=== PATIENT | female | born 1980 | race Caucasian/White ===

== ENCOUNTER 2019-03-12 09:36 | Emergency (ER) | payer BC ==
[~2019-03-12] VITALS: Ht 165.1 cm; Wt 81.6 kg
--- NOTE | 2019-03-12 09:56 | PHYS DOC ---
Adult General Chief Complaint Chief Complaint: BACK PAIN OR INJURY HPI HPI Patient is a 38 year old F who presents after a slip and fall on ice this morning. She states that she fell backwards landing on her bottom and then falling backwards hitting her mid back. She describes dull constant pain in the mid back that radiates around to the front. Her pain is worse with movement and improved with relative rest. She denies numbness or tingling. She feels that her pain is mildly improved. She does have a history of low back pain Review of Systems Review of Systems Constitutional: Denies fever or chills [] Eyes: Denies change in visual acuity, redness, or eye pain [] HENT: Denies nasal congestion or sore throat [] Respiratory: Denies cough or shortness of breath [] Cardiovascular: No additional information not addressed in HPI [] GI: Denies abdominal pain, nausea, vomiting, bloody stools or diarrhea [] : Denies dysuria or hematuria [] Musculoskeletal: Negative except history of present illness Integument: Denies rash or skin lesions [] Neurologic: Denies headache, focal weakness or sensory changes [] Endocrine: Denies polyuria or polydipsia [] All other systems were reviewed and found to be within normal limits, except as documented in this note. Family History Family History She states that her father had "thick blood". She states that she also has "thick blood" Current Medications Current Medications Current medications were reviewed Allergies Allergies Allergies listed Physical Exam Physical Exam Constitutional: Well developed, well nourished, no acute distress, non-toxic appearance. [] HENT: Normocephalic, atraumatic, Eyes: PERRLA, EOMI, conjunctiva normal, no discharge. [] Neck: Normal range of motion, no tenderness, supple, no stridor. [] Cardiovascular:Heart rate regular rhythm, Lungs & Thorax: Bilateral breath sounds clear to auscultation [] Abdomen: Bowel sounds normal, soft, no tenderness, no masses, no pulsatile masses. [] Skin: Warm, dry, no erythema, no rash. [] Back: Paraspinal muscle spasm noted in the thoracic spine. Left-sided rib pain noted. Extremities: No tenderness, no cyanosis, no clubbing, ROM intact, no edema. [] Neurologic: Alert and oriented X 3, normal motor function, normal sensory function, no focal deficits noted. [] Psychologic: Affect normal, judgement normal, mood normal. [] Current Patient Data Vital Signs Vital Signs Date Time Temp Pulse Resp B/P (MAP) Pulse Ox O2 Delivery O2 Flow Rate FiO2 03/12/19 09:55 98.0 80 20 100 Room Air EKG EKG [] Radiology/Procedures Radiology/Procedures [] Impressions: Examination: RIBS RIGHT AND PA CHEST, THORACIC SPINE 3V History: Fall, back pain Comparison/Correlation: None Findings: PA view of the chest was obtained. 7 additional images were obtained and these include 3 views of the thoracic spine and 4 images of the right ribs. Levo convexity of the mid to low thoracic spine is present. Alignment is normal. No fracture or bone destruction. Minimal spurring of the vertebral body endplates of the lower thoracic spine suggested. No infiltrate. No pneumothorax. No pleural effusion. Right ribs are intact. Impression: No active disease. Scoliosis. Right ribs are intact. Course & Med Decision Making Course & Med Decision Making Pertinent Labs and Imaging studies reviewed. (See chart for details) [] Dragon Disclaimer Dragon Disclaimer This electronic medical record was generated, in whole or in part, using a voice recognition dictation system. Departure Departure: Impression: Primary Impression: Back strain Disposition: 01 HOME, SELF-CARE Condition: STABLE Referrals: ROLANDO WOLFE MD (PCP) Patient Instructions: Back Exercises, Back Injury Prevention, Back Pain, Adult Additional Instructions: Kesha was seen in the emergency department after a fall. No emergency medical condition was on history physical exam. She did have normal imaging of her spine and ribs. Her symptoms are most consistent with bruising and muscle strain. She was advised to continue range of motion activities. She was advised to use ibuprofen and Tylenol as needed. She was also given a prescription for muscle relaxer to use as needed. She was advised follow-up with her primary care doctor as needed for further management. Scripts Cyclobenzaprine Hcl (CYCLOBENZAPRINE HCL) 10 Mg Tablet 1 TAB PO TID PRN for PAIN for 3 Days, #9 TAB Prov: HANNAH SANDOVAL MD 03/12/19 Problem Qualifiers Primary Impression: Back strain Encounter type: initial encounter Qualified Codes: S39.012A - Strain of muscle, fascia and tendon of lower back, initial encounter HANNAH SANDOVAL MD Mar 12, 2019 09:56
[2019-03-12 10:55] VITALS: BP 132/79
[2019-03-12] MEDS ORDERED: CYCL-331 PO (11:11)
--- NOTE | 2019-03-12 11:12 | RAD ---
Examination: RIBS RIGHT AND PA CHEST, THORACIC SPINE 3V History: Fall, back pain Comparison/Correlation: None Findings: PA view of the chest was obtained. 7 additional images were obtained and these include 3 views of the thoracic spine and 4 images of the right ribs. Levo convexity of the mid to low thoracic spine is present. Alignment is normal. No fracture or bone destruction. Minimal spurring of the vertebral body endplates of the lower thoracic spine suggested. No infiltrate. No pneumothorax. No pleural effusion. Right ribs are intact. Impression: No active disease. Scoliosis. Right ribs are intact. Electronically signed by: Low Harding MD (03/12/2019 11:09 AM) [facility]
== END 2019-03-12 11:23 | disposition home or self-care (01) ==
LOC: ER 09:36
DX: S39.012A Strain of muscle, fascia and tendon of lower back, initial encounter (principal); W18.39XA Other fall on same level, initial encounter; Y93.89 Activity, other specified; Y92.89 Other specified places as the place of occurrence of the external cause; Y99.8 Other external cause status
CPT/HCPCS: 71101; 72072; 99284

== ENCOUNTER 2019-04-18 01:04 | Emergency (ER) | payer BC ==
[~2019-04-18] VITALS: Ht 165.1 cm; Wt 70.0 kg
[~2019-04-18 01:04] MED LIST: CYCL-331 PO
[2019-04-18] MEDS ORDERED: LEVE500T56 PO (01:19)
--- NOTE | 2019-04-18 01:19 | PHYS DOC ---
Past History Past Medical History: Anxiety Past Surgical History: Tonsillectomy, Other Additional Past Surgical Histo: miniscus repair Alcohol Use: Rarely Drug Use: None Adult General HPI HPI Patient is a 38-year-old female who presents to the emergency department for evaluation. Her states he had just gotten into bed, when he was awakened by the patient's movements, he turned on the light and found that the patient was having a generalized tonic-clonic seizure. The seizure lasted about 10-15 minutes per the report, and EMS arrived and found the patient postictal. The patient bit her tongue but did not lose urinary continence. She is coherent and at her baseline at this time, and denies any complaints of pain. She has no prior seizure history. She was started on Lexapro and vitamin D about a month ago, and is chronically on Singulair and minocycline for acne. She has no other complaints at this time. She denies any significant alcohol or drug use. Review of Systems Review of Systems Constitutional: Denies fever or chills [] Eyes: Denies change in visual acuity, redness, or eye pain [] HENT: Denies nasal congestion or sore throat [] Respiratory: Denies cough or shortness of breath [] Cardiovascular:The patient denies any shortness of breath, chest pain, palpitations, or orthopnea[] GI: Denies abdominal pain, nausea, vomiting, bloody stools or diarrhea [] : Denies dysuria or hematuria LMP about 2 weeks ago.[] Musculoskeletal: Denies back pain or joint pain [] Integument: Denies rash or skin lesions [] Neurologic: Denies headache, focal weakness or sensory changes [] Endocrine: Denies polyuria or polydipsia [] All other systems were reviewed and found to be within normal limits, except as documented in this note. Allergies Allergies Allergies Coded Allergies Type Severity Reaction Last Updated Verified Penicillins Allergy Unknown 03/12/19 Yes Sulfa (Sulfonamide Antibiotics) Allergy Unknown 03/12/19 Yes bupropion Allergy Unknown 03/12/19 Yes latex Allergy Unknown 03/12/19 Yes Physical Exam Physical Exam PHYSICAL EXAM: CONSTITUTIONAL: Well developed, well nourished HEAD: normocephalic, atraumatic EENT: PERRL, EOMI. Conjunctivae normal color, sclerae non-icteric; moist mucous membranes. There is superficial abrasions to the right side of the tongue. NECK: Supple, non-tender; no meningismus. LUNGS: Lungs CTA, breathing even and unlabored. Normal air movement. HEART: Regular rate and rhythm, no murmur CHEST: No deformity; non-tender ABDOMEN: The abdomen is soft, and non-tender, no masses or bruits. EXTREM: Normal ROM; no deformity, no calf tenderness. Normal pulses palpable in all extremities. There is no pedal edema. SKIN: No rash; no diaphoresis NEURO: Alert; normal speech and cognition; CN's grossly intact; strength grossly intact without focal deficit. BACK: No CVA TTP. Current Patient Data Lab Results Laboratory Tests Test 04/18/19 01:41 04/18/19 01:42 04/18/19 01:53 White Blood Count 6.9 x10^3/uL Red Blood Count 4.38 x10^6/uL Hemoglobin 13.3 g/dL Hematocrit 39.9 % Mean Corpuscular Volume 91 fL Mean Corpuscular Hemoglobin 30 pg Mean Corpuscular Hemoglobin Concent 33 g/dL Red Cell Distribution Width 13.2 % Platelet Count 200 x10^3/uL Neutrophils (%) (Auto) 51 % Lymphocytes (%) (Auto) 36 % Monocytes (%) (Auto) 8 % Eosinophils (%) (Auto) 5 % Basophils (%) (Auto) 1 % Neutrophils # (Auto) 3.5 x10^3uL Lymphocytes # (Auto) 2.5 x10^3/uL Monocytes # (Auto) 0.5 x10^3/uL Eosinophils # (Auto) 0.3 x10^3/uL Basophils # (Auto) 0.0 x10^3/uL Sodium Level 142 mmol/L Potassium Level 4.0 mmol/L Chloride Level 105 mmol/L Carbon Dioxide Level 27 mmol/L Anion Gap 10 Blood Urea Nitrogen 16 mg/dL Creatinine 0.8 mg/dL Estimated GFR (Cockcroft-Gault) 81.2 BUN/Creatinine Ratio 20 Glucose Level 92 mg/dL Calcium Level 8.9 mg/dL Magnesium Level 2.1 mg/dL Total Bilirubin 0.2 mg/dL Aspartate Amino Transf (AST/SGOT) 23 U/L Alanine Aminotransferase (ALT/SGPT) 33 U/L Alkaline Phosphatase 61 U/L Total Protein 6.3 g/dL Albumin 3.5 g/dL Albumin/Globulin Ratio 1.3 Urine Collection Type Unknown Urine Color Yellow Urine Clarity Clear Urine pH 6.0 Urine Specific Dille 1.020 Urine Protein Neg Urine Glucose (UA) Neg mg/dL Urine Ketones (Stick) Neg mg/dL Urine Blood Trace Urine Nitrite Neg Urine Bilirubin Neg Urine Urobilinogen Dipstick 0.2 mg/dL Urine Leukocyte Esterase Neg Urine RBC 0 /HPF Urine WBC Occ /HPF Urine Squamous Epithelial Cells Few /LPF Urine Bacteria 0 /HPF Urine Opiates Screen Neg Urine Methadone Screen Neg Urine Barbiturates Neg Urine Phencyclidine Screen Neg Urine Amphetamine/Methamphetamine Neg Urine Benzodiazepines Screen Neg Urine Cocaine Screen Neg Urine Cannabinoids Screen Neg Urine Ethyl Alcohol Neg Bedside Urine HCG, Qualitative hcg negative Current Medications Medications (Trade) Dose Ordered Sig/Srikanth Route PRN Reason Start Time Stop Time Status Last Admin Dose Admin Levetiracetam 500 mg/Sodium Chloride 100 ml @ 400 mls/hr Q12HR IV 04/18/19 02:00 04/18/19 01:45 Sodium Chloride 1,000 ml @ 1,000 mls/hr Q1H IV 04/18/19 01:30 04/18/19 02:30 DC 04/18/19 01:44 Sodium Chloride 100 ml @ As Directed STK-MED ONCE .ROUTE 04/18/19 01:29 04/18/19 01:29 DC Sodium Chloride 100 ml @ As Directed STK-MED ONCE .ROUTE 04/18/19 01:29 04/18/19 01:30 DC Levetiracetam (Keppra) 500 mg STK-MED ONCE IV 04/18/19 01:30 04/18/19 01:31 DC EKG EKG Normal sinus rhythm with a normal rate, normal axis, normal intervals, there are no acute ischemic ST/T changes.[] Radiology/Procedures Radiology/Procedures CT Head: Negative[] Course & Med Decision Making Course & Med Decision Making Pertinent Labs and Imaging studies reviewed. (See chart for details) []I discussed seizure cautions with the patient, and her , the need for close neurology follow-up and return precautions. The patient has a previously scheduled follow-up appointment with her PCP later today, which I encouraged her to keep. Dragon Disclaimer Dragon Disclaimer This electronic medical record was generated, in whole or in part, using a voice recognition dictation system. Departure Departure: Impression: Primary Impression: Seizure Disposition: HOME, SELF-CARE Condition: STABLE Referrals: ROLANDO WOLFE MD (PCP) QUINTON RODRIGUEZ MD Patient Instructions: Seizure, Adult Scripts Levetiracetam (KEPPRA) 500 Mg Tablet 1 TAB PO BID for - for 30 Days, #60 TAB 0 Refills Prov: CHELO JIANG MD 04/18/19 CHELO JAING MD Apr 18, 2019 01:19
[2019-04-18] MEDS ORDERED: IV NORMAL SALINE 100ML 100 ML ONE ×2 (01:29)
[2019-04-18] MEDS ORDERED: levETIRAcetam 500 MG/5 ML VIAL IV ONE (01:30)
[2019-04-18] MEDS ORDERED: IV NORMAL SALINE 1,000ML 1,000 ML IV SCH (01:30)
[2019-04-18 01:59] LABS: BASO % 1 % (0-3); EOS # 0.3 x10^3/uL (0.0-0.7); EOS % 5 % (0-3); HEMATOCRIT 39.9 % (36.0-47.0); HEMOGLOBIN 13.3 g/dL (12.0-15.5); LYMPH # 2.5 x10^3/uL (1.0-4.8); LYMPH % 36 % (24-48); MEAN CORPUSCULAR HEMOGLOBIN 30 pg (25-35); MEAN CORPUSCULAR HGB CONC 33 g/dL (31-37); MEAN CORPUSCULAR VOLUME 91 fL (79-100); MONO # 0.5 x10^3/uL (0.0-1.1); MONO % 8 % (0-9); NEUT # 3.5 x10^3uL (1.8-7.7); NEUT % 51 % (31-73); PLATELET COUNT 200 x10^3/uL (140-400); RED BLOOD COUNT 4.38 x10^6/uL (3.50-5.40); RED CELL DISTRIBUTION WIDTH 13.2 % (11.5-14.5); WHITE BLOOD COUNT 6.9 x10^3/uL (4.0-11.0)
[2019-04-18 02:04] LABS: CALCIUM 8.9 mg/dL (8.5-10.1); CREATININE 0.8 mg/dL (0.6-1.0); GFR 81.2
[2019-04-18 02:06] LABS: BILIRUBIN,URINE NEG (NEG); CLARITY,URINE CLEAR; COLOR,URINE YELLOW; GLUCOSE,URINE NEG (NEG); NITRITE,URINE NEG (NEG); UROBILINOGEN,URINE 0.2 mg/dL (0.2 mg/dL)
[2019-04-18 02:07] LABS: BACTERIA,URINE 0 /HPF (0-FEW); RBC,URINE 0 /HPF (0-2); SQUAMOUS EPITHELIAL CELL,UR FEW /LPF; WBC,URINE OCC /HPF (0-4)
[2019-04-18 02:08] LABS: BARBITURATES NEG (NEG); BENZODIAZEPINES NEG (NEG); CANNABINOIDS NEG (NEG); COCAINE NEG (NEG); METHADONE NEG (NEG); OPIATES NEG (NEG); PHENCYCLIDINE NEG (NEG)
[2019-04-18 02:09] LABS: ALBUMIN 3.5 g/dL (3.4-5.0); ALBUMIN/GLOBULIN RATIO 1.3 (1.0-1.7); MAGNESIUM 2.1 mg/dL (1.8-2.4); TOTAL BILIRUBIN 0.2 mg/dL (0.2-1.0); TOTAL PROTEIN 6.3 g/dL (6.4-8.2)
[2019-04-18 02:09] LABS: AMPHETAMINE/METHAMPHETAMINE NEG (NEG)
[2019-04-18 02:44] VITALS: BP 116/76
--- NOTE | 2019-04-18 02:47 | RAD ---
CT head without contrast dated 04/18/2019. No comparison available. Clinical data indication: Seizure. TECHNIQUE: Contiguous axial imaging the head was performed from skull base to vertex. No contrast administered. One or more of the following individualized dose reduction techniques were utilized for this examination: 1. Automated exposure control 2. Adjustment of the mA and/or kV according to patient size 3. Use of iterative reconstruction technique. FINDINGS: Ventricles and sulci are within normal limits for age. 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 No midline shift or mass effect. Brain parenchyma is of normal attenuation. No hemorrhage or extra-axial collection. Posterior fossa and brainstem unremarkable. Visualized paranasal sinuses and mastoid air cells are clear. No apparent calvarial abnormality. IMPRESSION: No evidence of acute intracranial abnormality. Electronically signed by: Pramod May MD (04/18/2019 2:44 AM) [id number]
--- NOTE | 2019-04-18 05:49 | EKG ---
[address] [address] Test Date: 2019-04-18 Test Time: 01:20:32 Pat Name: MOISES WALTERS Department: Room: Gender: F [employer]: : 1980 Requested By: CHELO JIANG Order Number: [id number] Reading MD: Measurements Intervals [place] Rate: 88 P: 34 ID: [id number] QRS: 26 QRSD: 68 T: 9 QT: 348 QTc: 424 Interpretive Statements SINUS RHYTHM NORMAL ECG RI6.01 No previous ECG available for comparison
== END 2019-04-18 03:05 | disposition home or self-care (01) ==
LOC: ER 01:04
DX: G40.89 Other seizures (principal); F41.9 Anxiety disorder, unspecified; Z88.0 Allergy status to penicillin; Z88.2 Allergy status to sulfonamides; Z91.040 Latex allergy status; Z88.8 Allergy status to other drugs, medicaments and biological substances
CPT/HCPCS: 36415; 70450; 80053; 80307; 81001; 81025; 83735; 85025; 93005; 96365; 99285; J1953; J7030

== ENCOUNTER → 2020-01-06 | Outpatient (CLI) | payer BC ==
[~2020-01-06] MED LIST changes: +LEVE500T56 PO
== END ==
LOC: LAB 08:59
PROVIDERS: ATTEND Psychiatry & Neurology Neurology
DX: R56.9 Unspecified convulsions (principal)
CPT/HCPCS: 36415; 80177

== ENCOUNTER → 2021-03-02 | Outpatient (CLI) | payer OTHER ==
[~2021-03-02] MED LIST changes: -CYCL-331 PO; +CYCL10TA19 PO
== END ==
LOC: LAB 09:21
PROVIDERS: ATTEND Internal Medicine Cardiovascular Disease
DX: Z20.822 Contact with and (suspected) exposure to COVID-19 (principal)
CPT/HCPCS: U0003

== ENCOUNTER → 2021-05-03 | Outpatient (CLI) | payer OTHER ==
[2021-05-03 12:29] LABS: BASO # 0.1 x10^3/uL (0.0-0.2); BASO % 2 % (0-3); EOS # 0.1 x10^3/uL (0.0-0.7); EOS % 2 % (0-3); HEMATOCRIT 41.3 % (36.0-47.0); HEMOGLOBIN 13.9 g/dL (12.0-15.5); LYMPH # 1.6 x10^3/uL (1.0-4.8); LYMPH % 25 % (24-48); MEAN CORPUSCULAR HEMOGLOBIN 31 pg (25-35); MEAN CORPUSCULAR HGB CONC 34 g/dL (31-37); MEAN CORPUSCULAR VOLUME 92 fL (79-100); MONO # 0.3 x10^3/uL (0.0-1.1); MONO % 5 % (0-9); NEUT # 4.3 x10^3uL (1.8-7.7); NEUT % 66 % (31-73); PLATELET COUNT 232 x10^3/uL (140-400); RED BLOOD COUNT 4.51 x10^6/uL (3.50-5.40); WHITE BLOOD COUNT 6.4 x10^3/uL (4.0-11.0)
[2021-05-03 12:34] LABS: ALBUMIN 3.9 g/dL (3.4-5.0); ALBUMIN/GLOBULIN RATIO 1.3 (1.0-1.7); CALCIUM 8.9 mg/dL (8.5-10.1); CREATININE 0.7 mg/dL (0.6-1.0); GFR 93.6; TOTAL BILIRUBIN 0.3 mg/dL (0.2-1.0); TOTAL PROTEIN 6.9 g/dL (6.4-8.2)
[2021-05-04 19:40] LABS: FREE T4 0.9 ng/dL (0.76-1.46); THYROID STIM HORMONE (TSH) 1.246 uIU/mL (0.358-3.740)
== END ==
LOC: LAB 11:46
PROVIDERS: ATTEND Physician Assistant
DX: N92.1 Excessive and frequent menstruation with irregular cycle (principal); R53.83 Other fatigue
CPT/HCPCS: 36415; 80053; 84439; 84443; 85025